=== PATIENT | male | born 1995 | race Caucasian/White ===

== ENCOUNTER 2016-11-11 03:43 | Emergency (ER) | payer SELFPAY ==
[~2016-11-11] VITALS: Ht 170.2 cm; Wt 77.1 kg
[2016-11-11] MEDS ORDERED: BACITRACIN ZINC OINT UDPKT TOP ONE (05:15)
[2016-11-11] MEDS ORDERED: IBUPROFEN 600MG TABLET PO ONE (05:15)
[2016-11-11] MEDS ORDERED: LIDOCAINE HCL 1% 20ML VIAL (Pyxis) INJ MC ONE (05:15)
[2016-11-11] MEDS ORDERED: KETOROLAC 60MG/2ML VIAL IM ONE (06:00)
[2016-11-11 06:55] VITALS: BP 129/71
== END 2016-11-11 07:11 | disposition home or self-care (01) ==
LOC: ER 03:49
DX: S51.811A Laceration without foreign body of right forearm, initial encounter (principal); W22.09XA Striking against other stationary object, initial encounter; Y93.89 Activity, other specified; Y92.9 Unspecified place or not applicable; Y99.8 Other external cause status
CPT/HCPCS: 73090; 96372; 99284; A4217; J1885; J3490; Z7610